=== PATIENT | male | born 1975 | race Caucasian/White ===

== ENCOUNTER 2018-11-04 15:50 | Outpatient (REF) | payer OTHER, SELFPAY ==
[2018-11-04 19:13] LABS: HCT 43.8 % (40.0-50.0); HGB 15.2 g/dL (13.5-17.5); Mean Corp. HGB Concentration 34.7 g/dL (32.0-36.0); Mean Corpuscular Hemoglobin 30.3 pg (27.0-33.0); Mean Corpuscular Volume 87.4 fL (80-95); Mean Platelet Volume 10.9 fL (8.0-11.0); Platelet Count 249 x1000/uL (130-400); RBC 5.01 m/cumm (4.50-6.00); RBC Distribution Width 12.7 % (11.8-14.1); White Blood Cell Count 8.14 k/cumm (4.4-10.8)
[2018-11-04 19:27] LABS: Mono Screening Negative (Negative)
== END 2018-11-04 16:10 ==
LOC: NCHCN 15:50
PROVIDERS: PCP Internal Medicine; Visit Provider Nurse Practitioner Family
DX: J02.0 Streptococcal pharyngitis (principal)
CPT/HCPCS: 85027; 86308

== ENCOUNTER 2020-03-03 01:34 | Outpatient (CLI) | payer OTHER, SELFPAY | END 2020-03-03 01:54 | PROVIDERS: PCP Internal Medicine; Visit Provider Internal Medicine | DX: R00.2 Palpitations (principal); I10 Essential (primary) hypertension ==

== ENCOUNTER 2020-03-04 00:33 | Outpatient (CLI) | payer OTHER, SELFPAY ==
--- NOTE | 2020-03-04 08:00 | DI.NM_ITS ---
APPROVED REPORT Exam: Pharmacologic Patient Location: Out-Patient Room/Bed: Stress Nurse: Nalini Shukla RN BMI: 51.68 Baseline Rhythm: Sinus Rhythm Comment: PVCs Indications: Palpitations. Medical History Medical History: Depression Cardiac Medications: Amlodipine. Hydrochlorothiazide. Aspirin. Magnesium., Allergies: Penicillin Cardiac Risk Factors: HTN Exercise History: Sedentary Physical Disabilities: Legs, Knees, Back Lung Sounds: Clear to auscultation Heart Sounds: Regular Stress Test Details Test: Pharmacologic stress testing performed using 0.4 mg of regadenoson per 5 mL given IV over 10 s econds. Rest Isotope: Tc-99m Sestamibi. Dose: 30.0 Date: 03/04/2020 Injection Time: 0930 Stress Isotope: Tc-99m Sestamibi. Dose: 33.0 Date: 03/04/2020 Injection Time: 0916 HR Resting HR Supine: 79 bpm Max Heart Rate (APMHR): 177 bpm Target HR (85% APMHR): 150 bpm Max HR Achieved: 90 bpm % of APMHR: 50 BP Resting BP Supine: 168/72 mmHg Max BP: 174/60 mmHg Recovery BP: 164/60 mmHg ECG Resting ECG: Sinus Rhythm Ectopy: Intermittent PVCs with brief ventricular bigeminy pattern. Stress ECG: Sinus Rhythm Arrhythmia: VPC's Recovery Arrhythmia: VPC Clinical Stress Symptoms: No significant symptoms post lexiscan injection Stress ECG Conclusion 1. This is a pharmacological stress test. 2. The EKG portion of this exam is nondiagnostic. Stress Test Summary STAGE HR BP Symptoms NOTES Supine 79 168/72 1 min post Lexiscan injection 90 170/66 SOB. 3 min post Lexiscan injection 83 174/60 6 min post Lexiscan injection 76 164/60 SOB subsided. MPI Conclusion The patient's ejection fraction was 51%. There were no wall motion abnormalities. There was a small partially reversible perfusion defect at the apex. This existed with attenuation c orrection as well. This represents an abnormal SPECT stress test. Radiologist Interpretation Radiologist Interpretation by: Isaiah Lobo MD Interpretation Date/Time: 03/08/2020 10:53:32
[2020-03-04] MEDS: Regadenoson 0.4 MG/5 ML SYR IVP (09:45)
== END 2020-03-04 00:53 ==
PROVIDERS: PCP Internal Medicine; Visit Provider Internal Medicine
DX: R00.2 Palpitations (principal); I10 Essential (primary) hypertension; F32.9 Major depressive disorder, single episode, unspecified
CPT/HCPCS: 78452; 93017; J2785

== ENCOUNTER 2020-06-22 00:30 | Outpatient (CLI) | payer OTHER, SELFPAY ==
--- NOTE | 2020-06-22 08:00 | ETT_ITS ---
APPROVED REPORT Exam: Exercise Treadmill Patient Location: Out-Patient Room/Bed: Stress Nurse: Rosana Lujan RN BMI: 51.68 Baseline Rhythm: Sinus Rhythm Comment: previous Stress MPI 03/04/20 Indications: Palpitations Medical History Medical History: Anxiety, Arrhythmia, CAD non obstructive, Depression, HTN, Obesity Cardiac Medications: Amlodipine, Aspirin, Hydrochlorothiazide/ Microzide, Oretic, Metoprolol Allergies: penicillin Cardiac Risk Factors: HTN, FHX of CAD, SOB, Asthma Pretest Chest Pain Characteristics: No chest pain Exercise History: Physically active Physical Disabilities: Knees, Back Lung Sounds: Clear to auscultation Heart Sounds: Irregular Stress Test Details Test: Exercise stress testing was performed using a Gordon protocol. Rest Stress HR Resting HR Supine: 69 bpm Max Heart Rate (APMHR): 177 bpm Resting HR Standin bpm Target HR (85% APMHR): 150 bpm Max HR Achieved: 150 bpm % of APMHR: 84 Recovery HR: 83 bpm HR response to stress: Normal HR response to stress BP Resting BP Supine: 144/72 mmHg Resting BP Standin/76 mmHg Max BP: 188/76 mmHg Recovery BP: 150/72 mmHg BP response to stress: Normal blood pressure response to stress. ECG Resting ECG: Sinus Rhythm Ectopy: PVC'S Stress ECG: Sinus Tachycardia Maximum ST Deviation: -2.2 mm Arrhythmia: VPC's Recovery ECG: Sinus Rhythm Recovery Arrhythmia: VPC Clinical Reason for Termination: Target HR Achieved, BACK AND KNEE PAIN Stress Symptoms: Leg Fatigue Exercise duration: 6 min44 sec Highest Stage Reached: Stage 3: 3.4 mph at 14% grade. Exercise capacity: 8.17 METs Functional Capacity: Mildly deminished capacity Stress ECG Conclusion 1. The resting electrocardiogram was normal 2. Patient exercised on the Gordon protocol for 6 minutes and 44 seconds, a workload of 8.17 METS. He stopped due to leg fatigue. 3. Normal heart rate and blood pressure response to exercise 4. Peak heart rate was 84% of predicted for age. At this level there was no electrocardiographic santiago dence of myocardial ischemia 5. Rare PVCs were seen 6. Blair treadmill score is 6 which is low risk, 99% survival at 5 years Critical Notification Critical Value: No
== END 2020-06-22 00:50 ==
PROVIDERS: PCP Internal Medicine
DX: R00.2 Palpitations (principal); I10 Essential (primary) hypertension; Z82.49 Family history of ischemic heart disease and other diseases of the circulatory system; R06.02 Shortness of breath; J45.909 Unspecified asthma, uncomplicated; I49.1 Atrial premature depolarization
CPT/HCPCS: 93017

== ENCOUNTER 2021-01-25 12:05 | Outpatient (REF) | payer OTHER, SELFPAY ==
[2021-01-26 15:10] LABS: COVID-19 RT-PCR UVMMC Result Positive (Negative)
== END 2021-01-25 12:06 | disposition home or self-care (01) ==
LOC: NCHCN 12:05
PROVIDERS: PCP Internal Medicine; Visit Provider Internal Medicine
DX: Z20.822 Contact with and (suspected) exposure to COVID-19 (principal); R05 Cough
CPT/HCPCS: U0003

== ENCOUNTER 2021-01-27 10:27 | Outpatient (CLI) | payer OTHER, SELFPAY ==
[2021-01-27 13:11] VITALS: BP 141/97; PULSE 80; RESP 20; TEMP 36.9; O2SAT 95
[2021-01-27] MEDS: Normal Saline Flush 10 ML SYR IVP (13:18)
[2021-01-27] MEDS: Normal Saline 500 ML 30 ML IV (13:18)
[2021-01-27 13:25] VITALS: BP 126/86; PULSE 73; RESP 18; TEMP 37.1; O2SAT 94
[2021-01-27 13:55] VITALS: BP 130/87; PULSE 66; RESP 20; TEMP 36.8; O2SAT 97
[2021-01-27 14:25] VITALS: BP 133/89; PULSE 70; RESP 20; TEMP 37.2; O2SAT 99
[2021-01-27 14:55] VITALS: BP 135/91; PULSE 71; RESP 18; TEMP 37.1; O2SAT 97
== END 2021-01-27 10:28 | disposition home or self-care (01) ==
PROVIDERS: PCP Internal Medicine; Visit Provider Family Medicine
DX: U07.1 COVID-19 (principal)
CPT/HCPCS: 96365

== ENCOUNTER 2024-12-09 16:39 | Outpatient (REF) | payer OTHER, SELFPAY ==
[2024-12-11 10:40] LABS: Syphilis Serology (RPR) Negative (Negative)
[2024-12-11 11:20] LABS: HIV-1/2 Ag & Ab Screen Negative (Negative)
[2024-12-11 11:37] LABS: Hepatitis C Ab w Rflx HCV PCR Negative (Negative)
== END 2024-12-09 16:40 | disposition home or self-care (01) ==
LOC: NCHCN 16:39
PROVIDERS: PCP Internal Medicine; Visit Provider Physician Assistant
DX: Z11.59 Encounter for screening for other viral diseases (principal)
CPT/HCPCS: 86803; 87389; 87491; 87591; 86592

== ENCOUNTER 2024-12-12 11:08 | Outpatient (REF) | payer OTHER, SELFPAY ==
[2024-12-15 13:03] LABS: Chlamydia Result Negative (Negative); GC Result Negative (Negative)
== END 2024-12-12 11:09 | disposition home or self-care (01) ==
LOC: NCHCN 11:08
PROVIDERS: PCP Internal Medicine; Visit Provider Physician Assistant
DX: Z11.59 Encounter for screening for other viral diseases (principal)
CPT/HCPCS: 87491; 87591